=== PATIENT | female | born 1955 | race Caucasian/White ===

== ENCOUNTER 2016-12-17 12:38 | Inpatient (IN) | payer BC ==
[2016-12-17] MEDS ORDERED: SODIUM CHLORIDE 0.9% 1,000 ML IV STA (13:04)
--- NOTE | 2016-12-17 13:11 | ED ---
General Adult HPI - General Chief complaint: Chest Pain Stated complaint: Chest Pain, Light Headed, Blurred Vision Time Seen by Provider: 12/17/16 12:50 Source: patient, RN notes reviewed Mode of arrival: wheelchair Limitations: no limitations - History of Present Illness Initial comments: This is a 61-year-old female presents emergency department stating that everything in her vision when kind of wavy and she became very off balance while at work. Patient states when she got a truck she was very unsteady in her gait and thought she would fall over. Patient states she has some chest tightness but it was a very bad she thinks it may just been anxiety at the time because of all the lightheadedness. Patient states she also has a moderate headache. Patient denies any numbness or weakness that is focal. Patient denies any idea that she was going to pass out. Patient denies any difficulty breathing or shortness of breath per patient denies any diaphoretic episodes. Patient denies any abdominal pain patient denies nausea vomiting diarrhea. - Related Data Home Medications Medication Instructions Recorded Confirmed NIFEdipine [NIFEdipine ER] 60 mg PO DAILY 01/17/15 12/17/16 Aspirin [Adult Low Dose Aspirin EC] 81 mg PO DAILY 12/17/16 12/17/16 Atorvastatin [Lipitor] 20 mg PO HS 12/17/16 12/17/16 Multivitamin/Iron/Folic Acid 1 tab PO DAILY 12/17/16 12/17/16 [Centrum Complete Multivit Tab] Allergies Allergy/AdvReac Type Severity Reaction Status Date / Time No Known Allergies Allergy Verified 12/17/16 14:07 Review of Systems ROS Statement: Those systems with pertinent positive or pertinent negative responses have been documented in the HPI. ROS Other: All systems not noted in ROS Statement are negative. Past Medical History Past Medical History: Hypertension History of Any Multi-Drug Resistant Organisms: None Reported Past Surgical History: Appendectomy, Orthopedic Surgery, Tonsillectomy Additional Past Surgical History / Comment(s): Brain tumor removed in 1996 rt knee and lt ankle Past Anesthesia/Blood Transfusion Reactions: No Reported Reaction Past Psychological History: No Psychological Hx Reported Smoking Status: Never smoker Past Alcohol Use History: Daily Past Drug Use History: None Reported - Past Family History Brother(s) Family Medical History: Cancer Sister(s) Family Medical History: Cancer Mother Family Medical History: Deep Vein Thrombosis (DVT) General Exam - General Exam Comments Initial Comments: GENERAL: Patient is well-developed and well-nourished. Patient is nontoxic and well- hydrated and is in mild distress. ENT: Neck is soft and supple. No significant lymphadenopathy is noted. Oropharynx is clear. Moist mucous membranes. Neck has full range of motion without eliciting any pain. EYES: The sclera were anicteric and conjunctiva were pink and moist. Extraocular movements were intact and pupils were equal round and reactive to light. Eyelids were unremarkable. PULMONARY: Unlabored respirations. Good breath sounds bilaterally. No audible rales rhonchi or wheezing was noted. CARDIOVASCULAR: There is a regular rate and rhythm without any murmurs gallops or rubs. ABDOMEN: Soft and nontender with normal bowel sounds. No palpable organomegaly was noted. There is no palpable pulsatile mass. SKIN: Skin is clear with no lesions or rashes and otherwise unremarkable. NEUROLOGIC: Patient is alert and oriented x3. Cranial nerves II through XII are grossly intact. Motor and sensory are also intact. Normal speech, volume and content. Symmetrical smile. Finger nose cerebellar testing was normal bilaterally MUSCULOSKELETAL: Normal extremities with adequate strength and full range of motion. No lower extremity swelling or edema. No calf tenderness. LYMPHATICS: No significant lymphadenopathy is noted PSYCHIATRIC: Normal psychiatric evaluation. Limitations: no limitations Course Vital Signs 12/17/16 12/17/16 12:51 12:55 Temperature 98.9 F Pulse Rate 72 71 Respiratory 20 18 Rate Blood Pressure 148/82 148/82 O2 Sat by Pulse 98 98 Oximetry Medical Decision Making - Medical Decision Making EKG shows a junctional rhythm at 72 bpm QRS is 90 QT interval 396 QTC is 433. P waves can be seen on the EKG. No ST segment elevation or depression was noted. Patient's CT of the brain was normal patient's x-ray of the chest was normal. I will begin to reevaluate the patient she still had a headache and continues to have slight dizziness but was improved from earlier. Patient was able to ambulate but still felt slightly unsteady. - Lab Data Result diagrams: 12/17/16 13:11 12/17/16 13:11 Lab Results 12/17/16 12/17/16 12/17/16 Range/Units 13:11 13:11 13:11 WBC 6.2 (3.8-10.6) k/uL RBC 5.08 (3.80-5.40) m/uL Hgb 14.7 (11.4-16.0) gm/dL Hct 44.3 (34.0-46.0) % MCV 87.2 (80.0-100.0) fL MCH 28.9 (25.0-35.0) pg MCHC 33.1 (31.0-37.0) g/dL RDW 14.3 (11.5-15.5) % Plt Count 283 (150-450) k/uL Neutrophils % 66 % Lymphocytes % 27 % Monocytes % 4 % Eosinophils % 1 % Basophils % 1 % Neutrophils # 4.0 (1.3-7.7) k/uL Lymphocytes # 1.7 (1.0-4.8) k/uL Monocytes # 0.3 (0-1.0) k/uL Eosinophils # 0.1 (0-0.7) k/uL Basophils # 0.0 (0-0.2) k/uL Sodium 142 (137-145) mmol/L Potassium 4.0 (3.5-5.1) mmol/L Chloride 110 H (98-107) mmol/L Carbon Dioxide 22 (22-30) mmol/L Anion Gap 10 mmol/L BUN 15 (7-17) mg/dL Creatinine 0.70 (0.52-1.04) mg/dL Est GFR (MDRD) Af Amer >60 (>60 ml/min/1.73 sqM) Est GFR (MDRD) Non-Af >60 (>60 ml/min/1.73 sqM) Glucose 98 (74-99) mg/dL Calcium 9.6 (8.4-10.2) mg/dL Magnesium 2.1 (1.6-2.3) mg/dL Total Bilirubin 0.4 (0.2-1.3) mg/dL AST 29 (14-36) U/L ALT 35 (9-52) U/L Alkaline Phosphatase 104 (38-126) U/L Total Creatine Kinase 164 H (30-135) U/L CK-MB (CK-2) 1.8 (0.0-2.4) ng/mL CK-MB (CK-2) Rel Index 1.1 Troponin I <0.012 (0.000-0.034) ng/mL Total Protein 6.7 (6.3-8.2) g/dL Albumin 4.3 (3.5-5.0) g/dL Disposition Clinical Impression: Chest pain, Headache, Visual disturbance Disposition: ADMITTED IP TO THIS HOSP Referrals: Cordelia Partida DO [Primary Care Provider] - 1-2 days Time of Disposition: 16:19
[2016-12-17 13:22] LABS: Basophils % (A) 1 %; CH 30.1; CHCM 34.7; Eosinophils # (A) 0.1 k/uL (0-0.7); Eosinophils % (A) 1 %; HCT 44.3 % (34.0-46.0); HDW 2.61; HGB 14.7 gm/dL (11.4-16.0); Luc # (Auto) 0.09; Luc % (Auto) 2; Lymphocytes # (A) 1.7 k/uL (1.0-4.8); Lymphocytes % (A) 27 %; MCH 28.9 pg (25.0-35.0); MCHC 33.1 g/dL (31.0-37.0); MCV 87.2 fL (80.0-100.0); Mean Platelet Volume 8.6; Monocytes # (A) 0.3 k/uL (0-1.0); Monocytes % (A) 4 %; Neutrophils % (A) 66 %; RBC 5.08 m/uL (3.80-5.40); RDW 14.3 % (11.5-15.5); WBC 6.2 k/uL (3.8-10.6); WBC (Perox) 5.94
[2016-12-17 13:37] LABS: ALT 35 U/L (9-52); AST 29 U/L (14-36); Alkaline Phosphatase 104 U/L (38-126); Anion Gap 10 mmol/L; Blood Urea Nitrogen 15 mg/dL (7-17); Calcium 9.6 mg/dL (8.4-10.2); Carbon Dioxide 22 mmol/L (22-30); Chloride 110 mmol/L (98-107); Glucose 98 mg/dL (74-99); Magnesium 2.1 mg/dL (1.6-2.3); Non-African American GFR(MDRD) >60 (>60 ml/min/1.73 sqM); Sodium 142 mmol/L (137-145); Total Bilirubin 0.4 mg/dL (0.2-1.3); Total Protein 6.7 g/dL (6.3-8.2)
[2016-12-17 13:48] LABS: Creatine Kinase 164 U/L (30-135)
--- NOTE | 2016-12-17 13:56 | XR ---
EXAMINATION TYPE: XR chest 2V DATE OF EXAM: 12/17/2016 COMPARISON: Prior chest x-ray 08/14/2011 HISTORY: Chest pain TECHNIQUE: Frontal and lateral views of the chest are obtained. FINDINGS: There is no pleural effusion, or pneumothorax seen. Bandlike focus of increased density in the left lower lobe may represent subsegmental atelectasis or scar. The cardiac silhouette size is s table, borderline enlarged although the patient is rotated. There are overlying cardiac leads. The o sseous structures are intact. IMPRESSION: Findings are similar to prior exam. Subsegmental atelectasis is suspected versus scarrin g in the left lower lobe. Borderline enlarged cardiac size although the patient is rotated.
[2016-12-17 14:00] LABS: Creatine Kinase MB 1.8 ng/mL (0.0-2.4); Troponin I <0.012 ng/mL (0.000-0.034)
--- NOTE | 2016-12-17 15:13 | CT ---
EXAMINATION TYPE: CT brain wo con DATE OF EXAM: 12/17/2016 COMPARISON: NONE HISTORY: Visual disturbance today. History of a brain tumor per patient CT DLP: 978.2 mGycm Automated exposure control for dose reduction was used. Helical acquisition through the brain. FINDINGS: Prior surgery noted to the left parietal calvarium. There is no hemorrhage or hydrocephalus. Orbits s how symmetric appearance. Brain density is maintained. IMPRESSION: NO ACUTE ABNORMALITY EVIDENT ON THIS NONCONTRAST EXAM, FOLLOW-UP INDICATED
[2016-12-17] MEDS ORDERED: SODIUM CHLORIDE 0.9% 1,000 ML IV ONE (16:21)
[2016-12-17] MEDS ORDERED: MORPHINE SULFATE 2 MG/ML SYRINGE IVP ONE (16:27)
[2016-12-17] MEDS ORDERED: ONDANSETRON 4 MG/2 ML VIAL IVP PRN (17:13)
[2016-12-17] MEDS ORDERED: MELATONIN 3 MG TABLET PO PRN (17:13)
[2016-12-17] MEDS ORDERED: NALOXONE 0.4 MG/ML 1 ML VIAL IV PRN (17:13)
--- NOTE | 2016-12-17 17:54 | P.HPIM ---
History of Present Illness H&P Date: 12/17/16 Chief Complaint: Headache and visual changes This is a very pleasant 61 years old female presented to ER with complaints of visual changes, headache and lightheadedness. She works for a [employer], was driving today when all of a sudden she started having flickering light in both eyes. Patient describes it as if it was a sunlight hitting the water. it was associated with lightheadedness and left sided headache. Symptoms lasted for about 20-30 minutes. Headache was dull, located on the left side of the head and in the middle, time from time pain was sharp. Headache was 7 out of 10 in intensity and now subsided to 2 out of 10 . She also experienced photophobia and phonophobia, heaviness in the middle of chest that lasted for about 1-2 hours. Chest pain was non-radiationg, no nausea, dyspnea or diaphoresis. While intubated hospital she had an episode of her right arm shaking uncontrollably. It only lasted a few minutes and resolved. No prior history of migraine or seizures. 20 years ago patient had a large meningioma on the left side that was resected. Review of Systems Constitutional: Patient reports no fever, no chills, no weight changes, no change in appetite Eyes: Patient reports no double vision, c/o headache and flickering lights in both eyes ENT: Patient reports no rhinorrhea, no post nasal drip, no sore throat Cardiovascular: Patient reports no edema, no palpitations, no syncope, no orthopnea, no paroxysmal nocturnal dyspnea. c/o chest pain Respiratory: Patient reports no dyspnea, no cough, no wheeze Gastrointestinal: Patient reports no nausea, no vomiting, no constipation, no diarrhea Genitourinary: Patient reports no dysuria, no urinary frequency, no hematuria. Musculoskeletal: Patient reports no unusual joint pain, no joint swelling or weakness. Patient reports no muscular pain. Psychiatric: Patient reports no changes in mood, no sleeping problems. Patient reports no changes in memory. Endocrine: Patient reports no thirst, no polyuria, no cold intolerance, no heat intolerance. Neurological: Patient c/o headache, right arm shaking, dizziness Heme/Lymphatic: Patient reports no easy bruising, no bleeding tendency, no lymphadenopathy. Allergic/ Immunologic: Patient reports no recent allergic reactions or immunologic history. Skin: Patient reports no rashes or unusual lesions. Past Medical History Past Medical History: Hyperlipidemia, Hypertension Additional Past Medical History / Comment(s): meningioma History of Any Multi-Drug Resistant Organisms: None Reported Past Surgical History: Appendectomy, Orthopedic Surgery, Tonsillectomy Additional Past Surgical History / Comment(s): meningioma resection 1996, rt knee and lt ankle surgeries Past Anesthesia/Blood Transfusion Reactions: No Reported Reaction Past Psychological History: No Psychological Hx Reported Smoking Status: Never smoker Past Alcohol Use History: Daily Past Drug Use History: None Reported - Past Family History Brother(s) Family Medical History: Cancer Additional Family Medical History / Comment(s): Brother had non-Hodgkins lymphoma Sister(s) Family Medical History: Cancer Additional Family Medical History / Comment(s): sister colorectal cancer Mother Family Medical History: Congestive Heart Failure (CHF), COPD, Deep Vein Thrombosis (DVT) Father Family Medical History: Hypertension Additional Family Medical History / Comment(s): Father-Parkinson disease Medications and Allergies Home Medications Medication Instructions Recorded Confirmed Type NIFEdipine [NIFEdipine ER] 60 mg PO DAILY 01/17/15 12/17/16 History Aspirin [Adult Low Dose Aspirin EC] 81 mg PO DAILY 12/17/16 12/17/16 History Atorvastatin [Lipitor] 20 mg PO HS 12/17/16 12/17/16 History Multivitamin/Iron/Folic Acid 1 tab PO DAILY 12/17/16 12/17/16 History [Centrum Complete Multivit Tab] Allergies Allergy/AdvReac Type Severity Reaction Status Date / Time No Known Allergies Allergy Verified 12/17/16 14:07 Physical Exam Vitals: Vital Signs Temp Pulse Resp BP Pulse Ox 12/17/16 16:53 70 18 158/93 96 12/17/16 16:00 70 18 170/90 96 12/17/16 15:00 70 18 158/86 96 12/17/16 14:00 66 18 145/82 98 12/17/16 12:55 71 18 148/82 98 12/17/16 12:51 98.9 F 72 20 148/82 98 Intake and Output 12/17/16 12/17/16 12/17/16 06:59 14:59 22:59 Other: Weight 71.214 kg Patient Weight 12/18/16 06:59 Weight 71.214 kg Constitutional: No acute distress, conversant, pleasant Eyes: Anicteric sclerae, moist conjunctiva PERRL ENMT: NC/AT Neck: Supple, FROM, no masses, or JVD No thyromegaly Lungs: Clear to auscultation Normal respiratory effort, no accessory muscle use Cardiovascular: Heart regular in rate and rhythm, No murmurs, gallops, or rubs No peripheral edema Abdominal: Soft Nontender, no guarding, rebound or rigidity Abdomen moving with respiration Normoactive bowel sounds No hepatomegaly, No splenomegaly No palpable mass Skin: Normal temperature, tone, texture, turgor No induration No subcutaneous nodules No rash, lesions No ulcers Extremities: No digital cyanosis No clubbing Pedal pulses intact and symmetrical No calf tenderness Psychiatric: Alert and oriented to person, place and time Appropriate affect Intact judgement Neuro: Muscles Strength 5/5 in all 4 extremities Sensation to light touch grossly present throughout Cranial nerves II-XII grossly intact No focal sensory deficits Results CBC & Chem 7: 12/17/16 13:11 12/17/16 13:11 Labs: Abnormal Lab Results - Last 24 Hours (Table) 12/17/16 12/17/16 Range/Units 13:11 13:11 Chloride 110 H (98-107) mmol/L Total Creatine Kinase 164 H (30-135) U/L Chest x-ray: report reviewed CT Scan - head: report reviewed Assessment and Plan (1) Headache Narrative/Plan: Headache with visual disturbances and dizziness, likely complex migraine headache. Neuro checks every 4 hours, consult neurology. Will order Toradol for a headache, MRI of brain. Status: Acute (2) Chest pain Narrative/Plan: First set of troponins and EKG are normal. Cycle troponins, 2DECHO, if normal will defer a stress test to outpatient w/u. Status: Acute (3) Hypertension Narrative/Plan: Resume Nifedipine and monitor BP Status: Acute (4) Hyperlipidemia Narrative/Plan: Continue home medications, lipid panel in am. Status: Acute (5) DVT prophylaxis Narrative/Plan: Heparin SQ. Status: Acute
[2016-12-17 18:19] VITALS: BMI 25.9
[2016-12-17] MEDS: KETOROLAC 30 MG/ML 1 ML VIAL IVP SCH ×2 (18:27→23:56)
[2016-12-17] MEDS: HEPARIN SODIUM,PORCINE 5,000 UNIT/ML 1 ML VIAL SQ SCH (20:29)
[2016-12-17] MEDS: ATORVASTATIN 20 MG TAB PO SCH (20:29)
[2016-12-17] MEDS: FAMOTIDINE 20 MG TAB PO SCH (20:29)
[2016-12-18 02:20] LABS: Basophils % (A) 1 %; CH 29.8; CHCM 33.9; Eosinophils # (A) 0.1 k/uL (0-0.7); Eosinophils % (A) 2 %; HCT 40.6 % (34.0-46.0); HGB 13.2 gm/dL (11.4-16.0); Luc # (Auto) 0.07; Luc % (Auto) 2; Lymphocytes # (A) 2.2 k/uL (1.0-4.8); Lymphocytes % (A) 49 %; MCH 28.9 pg (25.0-35.0); MCHC 32.6 g/dL (31.0-37.0); MCV 88.4 fL (80.0-100.0); Mean Platelet Volume 8.6; Monocytes # (A) 0.2 k/uL (0-1.0); Monocytes % (A) 3 %; Neutrophils # (A) 1.9 k/uL (1.3-7.7); Neutrophils % (A) 43 %; RBC 4.59 m/uL (3.80-5.40); RDW 14.2 % (11.5-15.5); WBC 4.5 k/uL (3.8-10.6); WBC (Perox) 4.71
[2016-12-18 02:52] LABS: Anion Gap 6 mmol/L; Blood Urea Nitrogen 13 mg/dL (7-17); Carbon Dioxide 23 mmol/L (22-30); Chloride 109 mmol/L (98-107); Cholesterol 196 mg/dL (<200); Glucose 87 mg/dL (74-99); HDL Cholesterol 59 mg/dL (40-60); Non-African American GFR(MDRD) >60 (>60 ml/min/1.73 sqM); Potassium 3.6 mmol/L (3.5-5.1); Sodium 138 mmol/L (137-145)
[2016-12-18 03:09] LABS: Erythrocyte Sedimentation Rate 6 mm/hr (0-20)
[2016-12-18] MEDS: KETOROLAC 30 MG/ML 1 ML VIAL IVP SCH ×5 (06:29→23:18)
--- NOTE | 2016-12-18 09:00 | MR ---
EXAMINATION TYPE: MR brain wo con DATE OF EXAM: 12/18/2016 COMPARISON: CT brain 12/17/2016 HISTORY: Headache, Prior tumor removal in 1996 CONTRAST: Performed utilizing 0 mL intravenous Gadavist gadolinium contrast. TECHNIQUE: Multiplanar, multiecho imaging on a 3.0 Yuly magnet is performed through the brain. Stud y is performed within 24 hours of arrival to the hospital. Craniotomy is along the left posterior parietal region. The craniovertebral junction is normal. The pituitary is normal. Diffusion-weighted imaging is performed. Small amount of hyperintensities along the posterior medial right occipital vertex along the cortex appears tiny cortical ischemic change may be present at this level. Series 305 image 208. There are scattered punctate areas of hyperintensity on T2 and Inversion Recovery weighted sequences which are non-specific but can be related to microvascular ischemic changes. . Diffusion-weighted giovanny ging abnormality as a normal appearance on additional images. Ventricles and sulci are appropriate for the patient age. No suspicious recurrent masses are identified. White matter changes are in the posterior left occipit al region white matter could be residual from patient's surgery and prior changes. IMPRESSIONS: 1. Some minimal acute ischemic change may be along the right occipital vertex cortex. Correlate with symptoms. 2. Chronic white matter ischemic changes present. 3. Postsurgical changes left posterior parietal vertex. No suspicious changes for recurrence at this level.
[2016-12-18] MEDS: HEPARIN SODIUM,PORCINE 5,000 UNIT/ML 1 ML VIAL SQ SCH ×2 (09:49→23:17)
[2016-12-18] MEDS: ASPIRIN 81 MG CHEW PO SCH (09:49)
[2016-12-18] MEDS: MULTIVITAMINS, THERA 1 EACH TAB PO SCH (09:49)
[2016-12-18] MEDS: FAMOTIDINE 20 MG TAB PO SCH ×2 (09:49→23:18)
[2016-12-18] MEDS ORDERED: ACETAMINOPHEN TAB 325 MG TAB PO PRN (10:27)
--- NOTE | 2016-12-18 11:08 | ECHOF ---
Referral Reason:chest pain MEASUREMENTS -------- HEIGHT: 165.1 cm WEIGHT: 70.8 kg BP: 127/74 IVSd: 1.0 cm (0.6 - 1.1) LVIDd: 3.5 cm (3.9 - 5.3) LVPWd: 1.1 cm (0.6 - 1.1) IVSs: 1.7 cm LVIDs: 2.2 cm LVPWs: 1.7 cm Ao Diam: 3.2 cm (2.0 - 3.7) AV Cusp: 1.8 cm (1.5 - 2.6) LA Diam: 3.3 cm (2.7 - 3.8) MV EXCURSION: 11.844 mm (> 18.000) MV EF SLOPE: 55 mm/s (70 - 150) EPSS: 0.4 cm MV E Corwin: 0.83 m/s MV DecT: 181 ms MV A Corwin: 1.06 m/s MV E/A Ratio: 0.78 RAP: 5.00 mmHg RVSP: 18.21 mmHg FINDINGS -------- Sinus rhythm. This was a technically good study. Left ventricular wall thickness is normal. Overall left ventricular systolic function is normal with, an EF between 55 - 60 %. The right ventricle is normal in size and function. The left atrium is normal in size. The right atrium is normal in size. The aortic valve is trileaflet, and appears structurally normal. No aortic stenosis or regurgitation. Mild mitral regurgitation is present. There is mild mitral valve prolapse. Mild tricuspid regurgitation present. The right ventricular systolic pressure, as measured by Doppler, is 18.21mmHg. Pulmonic valve appears structurally normal. The aortic root size is normal. The pericardium is normal. CONCLUSIONS -------- 1. Sinus rhythm. 2. There is mild mitral valve prolapse. 3. Mild tricuspid regurgitation present. 4. The right ventricular systolic pressure, as measured by Doppler, is 18.21mmHg. 5. Pulmonic valve appears structurally normal. 6. The aortic root size is normal. 7. The pericardium is normal. 8. This was a technically good study. 9. Left ventricular wall thickness is normal. 10. Overall left ventricular systolic function is normal with, an EF between 55 - 60 %. 11. The right ventricle is normal in size and function. 12. The left atrium is normal in size. 13. The right atrium is normal in size. 14. The aortic valve is trileaflet, and appears structurally normal. No aortic stenosis or regurgitation. 15. Mild mitral regurgitation is present. LOOM FIXER SUPERVISOR: Nancy Joiner RDCS
--- NOTE | 2016-12-18 15:15 | P.PN ---
Subjective Principal diagnosis: Headache and visual changes This is a very pleasant 61 years old female presented to ER with complaints of visual changes, headache and lightheadedness. She works for a [employer], was driving today when all of a sudden she started having flickering light in both eyes. Patient describes it as if it was a sunlight hitting the water. it was associated with lightheadedness and left sided headache. Symptoms lasted for about 20-30 minutes. Headache was dull, located on the left side of the head and in the middle, time from time pain was sharp. Headache was 7 out of 10 in intensity and now subsided to 2 out of 10 . She also experienced photophobia and phonophobia, heaviness in the middle of chest that lasted for about 1-2 hours. Chest pain was non-radiationg, no nausea, dyspnea or diaphoresis. While intubated hospital she had an episode of her right arm shaking uncontrollably. It only lasted a few minutes and resolved. No prior history of migraine or seizures. 20 years ago patient had a large meningioma on the left side that was resected Patient has been seen and examined. Her headache site is significantly no visual changes, no tingling or numbness of extremities. Gait is stable. Denies chest pain or shortness of breath, no palpitations. Objective - Vital Signs Vital signs: Vital Signs Temp 97.9 F 12/18/16 11:38 Pulse 67 12/18/16 12:00 Resp 16 12/18/16 12:00 BP 145/91 12/18/16 11:38 Pulse Ox 96 12/18/16 11:38 Intake & Output 12/17/16 12/18/16 12/18/16 18:59 06:59 18:59 Intake Total 240 556 Balance 240 556 Weight 70.9 kg Intake: Oral 240 556 Other: Voiding Method Toilet Toilet Toilet # Voids 2 2 - Exam Constitutional: No acute distress, conversant, pleasant Eyes: Anicteric sclerae, moist conjunctiva ENMT: NC/AT Oropharynx clear, no erythema, exudates Neck: Supple, FROM, no masses, or JVD No thyromegaly Lungs: Clear to auscultation Normal respiratory effort, no accessory muscle use Cardiovascular: Heart regular in rate and rhythm, No murmurs, gallops, or rubs No peripheral edema Abdominal: Soft Nontender, no guarding, rebound or rigidity Normoactive bowel sounds No hepatomegaly, No splenomegaly No palpable mass No subcutaneous nodules No rash, lesions No ulcers Extremities: No digital cyanosis No clubbing Pedal pulses intact and symmetrical No calf tenderness Psychiatric: Alert and oriented to person, place and time Appropriate affect Intact judgement Neuro: Muscles Strength 5/5 in all 4 extremities Sensation to light touch grossly present throughout Cranial nerves II-XII grossly intact No focal sensory deficits All - Labs CBC & Chem 7: 12/18/16 02:06 12/18/16 02:06 Labs: Abnormal Lab Results - Last 24 Hours (Table) 12/18/16 Range/Units 02:06 Chloride 109 H (98-107) mmol/L LDL Cholesterol, Calc 121 H (0-99) mg/dL Assessment and Plan (1) Headache Narrative/Plan: Headache with visual disturbances and dizziness, possibly secondary to complex migraine versus acute ischemic event. MRI was done and showed very mild acute ischemia. EEG and neurology consult pending. Status: Acute (2) Chest pain Narrative/Plan: Echocardiogram is normal, EKG and troponins negative. Patient can have stress test done as an outpatient. Status: Acute (3) Hypertension Narrative/Plan: Continue Nifedipine. Status: Acute (4) Hyperlipidemia Narrative/Plan: Continue home medications, lipid panel in am. Status: Acute (5) DVT prophylaxis Narrative/Plan: Heparin SQ. Status: Acute
[2016-12-18] MEDS: ATORVASTATIN 20 MG TAB PO SCH (23:18)
--- NOTE | 2016-12-19 12:15 | P.CRDCN ---
History of Present Illness Consult date: 12/19/16 History of present illness: This is a 61-year-old female with history of hypertension and hyperlipidemia who was admitted to the hospital with visual changes, headache and lightheadedness. An MRI scan was suggestive of possible mild ischemia. A cardiology consult is requested to rule out any Cardec source of emboli. Patient has had some his symptoms of chest tightness. Patient had similar episode a few years ago and at the time. Patient had chest tightness. Patient had stress test and echo further cardiac evaluation which was normal. A sinus complaining of occasional palpitations. I recommend that we'll proceed with TAE to rule out any Cardec source of emboli. Patient also meanwhile consider for event monitor. The TAE could be arranged for next week. Further examination depend upon the findings on the tests Review of Systems As per the chart Past Medical History Past Medical History: Hyperlipidemia, Hypertension Additional Past Medical History / Comment(s): meningioma History of Any Multi-Drug Resistant Organisms: None Reported Past Surgical History: Appendectomy, Orthopedic Surgery, Tonsillectomy Additional Past Surgical History / Comment(s): meningioma resection 1996, rt knee and lt ankle surgeries Past Anesthesia/Blood Transfusion Reactions: No Reported Reaction Additional Past Anesthesia/Blood Transfusion Reaction / Comment(s): pt states she had a hard time waking up from previous anesthesia and pt states they couldn 't get her BP back up. Past Psychological History: No Psychological Hx Reported Smoking Status: Never smoker Past Alcohol Use History: Daily Past Drug Use History: None Reported - Past Family History Father Family Medical History: Hypertension Additional Family Medical History / Comment(s): Father-Parkinson disease Brother(s) Family Medical History: Cancer Additional Family Medical History / Comment(s): Brother had non-Hodgkins lymphoma Sister(s) Family Medical History: Cancer Additional Family Medical History / Comment(s): sister colorectal cancer Mother Family Medical History: Congestive Heart Failure (CHF), COPD, Deep Vein Thrombosis (DVT) Medications and Allergies Home Medications Medication Instructions Recorded Confirmed Type NIFEdipine [NIFEdipine ER] 60 mg PO DAILY 01/17/15 12/17/16 History Aspirin [Adult Low Dose Aspirin EC] 81 mg PO DAILY 12/17/16 12/17/16 History Atorvastatin [Lipitor] 20 mg PO HS 12/17/16 12/17/16 History Multivitamin/Iron/Folic Acid 1 tab PO DAILY 12/17/16 12/17/16 History [Centrum Complete Multivit Tab] Allergies Allergy/AdvReac Type Severity Reaction Status Date / Time No Known Allergies Allergy Verified 12/17/16 14:07 Physical Exam Vitals: Vital Signs Temp Pulse Pulse Resp BP Pulse Ox 12/19/16 11:55 98.1 F 64 16 141/73 97 12/19/16 08:00 16 12/19/16 07:30 98.1 F 55 L 16 159/84 100 12/19/16 04:00 98.3 F 53 L 56 L 18 129/79 99 12/19/16 00:00 98.1 F 50 L 62 18 172/92 98 12/18/16 20:00 18 12/18/16 19:33 98.5 F 61 18 148/71 97 12/18/16 16:00 65 16 12/18/16 15:53 98.2 F 65 16 153/76 95 Intake and Output 12/18/16 12/19/16 12/19/16 22:59 06:59 14:59 Intake Total 236 236 Balance 236 236 Intake: Oral 236 236 Other: Voiding Method Toilet Toilet Toilet # Voids 3 GENERAL EXAM: Patient is alert and oriented and doesn't appear to be in any acute distress HEENT: Normocephalic. Normal reaction of pupils, equal size, normal range of extraocular motion. No erythema or exudates in the throat. NECK: No masses, no nuchal rigidity. CHEST: No chest wall deformity. LUNGS: Equal air entry with no crackles or wheeze. HEART: S1 and S2 normal with no audible mumurs or gallops. Regular rhythm, femorals equal on both sides.. ABDOMEN: No hepatosplenomegaly, normal bowel sounds, no guarding or rigidity. SKIN: No rashes CENTRAL NERVOUS SYSTEM: No focal deficits. Per neurology EXTREMITIES: No cyanosis, clubbing or edema. Results 12/18/16 02:06 12/18/16 02:06 Current Medications Generic Name Dose Route Start Last Admin Trade Name Freq PRN Reason Stop Dose Admin Acetaminophen 650 mg 12/18/16 10:27 Tylenol Tab PO Q6HR PRN Fever and/ or Pain Aspirin 81 mg 12/18/16 09:00 12/18/16 09:49 Aspirin PO 81 mg DAILY GAYE Administration Atorvastatin Calcium 20 mg 08/23/17 21:00 12/18/16 23:18 Lipitor PO 20 mg HS GAYE Administration Famotidine 20 mg 12/17/16 21:00 12/18/16 23:18 Pepcid PO 20 mg BID GAYE Administration Heparin Sodium (Porcine) 5,000 unit 12/17/16 21:00 12/18/16 23:17 Heparin SQ 5,000 unit Q12HR GAYE Administration Ketorolac Tromethamine 15 mg 12/17/16 18:00 12/18/16 23:18 Toradol IVP 12/21/16 17:20 15 mg Q6HR GAYE Administration Melatonin 3 mg 12/17/16 17:13 Melatonin PO HS PRN Insomnia Multivitamins 1 each 12/18/16 09:00 12/18/16 09:49 Theragran PO 1 each DAILY GAYE Administration Naloxone HCl 0.2 mg 12/17/16 17:13 Narcan IV Q2M PRN Opioid Reversal Nifedipine 60 mg 12/18/16 09:00 12/18/16 09:49 Procardia Xl PO 60 mg DAILY GAYE Administration Ondansetron HCl 4 mg 12/17/16 17:13 Zofran IVP Q8HR PRN Nausea And Vomiting Intake and Output 12/18/16 12/19/16 12/19/16 22:59 06:59 14:59 Intake Total 236 236 Balance 236 236 Intake: Oral 236 236 Other: Voiding Method Toilet Toilet Toilet # Voids 3 12/18/16 02:06 12/18/16 02:06 Assessment and Plan (1) TIA (transient ischemic attack) Status: Acute (2) Hyperlipidemia Status: Acute (3) Hypertension Status: Acute (4) Visual disturbance Status: Acute Plan: Patient's symptoms are size to of TIA. I would recommend a event monitor and TAE examination. He patient could be discharged home with event monitor and a TAE can be arranged for next week. Patient will also have an outpatient stress test. If necessary a loop recorder insertion could be considered if given monitor doesn't show any significant arrhythmias and if TAE is negative.
[2016-12-19] MEDS: KETOROLAC 30 MG/ML 1 ML VIAL IVP SCH ×3 (13:05→20:17)
[2016-12-19] MEDS: MULTIVITAMINS, THERA 1 EACH TAB PO SCH (13:06)
[2016-12-19] MEDS: FAMOTIDINE 20 MG TAB PO SCH ×2 (13:06→21:45)
[2016-12-19] MEDS: ASPIRIN 81 MG CHEW PO SCH (13:06)
[2016-12-19] MEDS: HEPARIN SODIUM,PORCINE 5,000 UNIT/ML 1 ML VIAL SQ SCH ×2 (13:07→21:45)
--- NOTE | 2016-12-19 15:36 | P.PN ---
Subjective Principal diagnosis: Patient seen and examined in follow-up for acute stroke/TIA 61-year-old female with past medical history of hypertension and dyslipidemia. She presented to the hospital due to sudden onset of vision disturbance and dizziness and unsteady gait. She'll reported that she was driving when she experienced symptoms and was progressively getting worse to the point that she had to tie puller and seek help. Upon further evaluation in the ED MRI of the brain was done which has raised suspicion for an ischemic event for which further stroke pathway workup was performed 2-D echo of the heart was unremarkable cardiology evaluated the patient for TAE to rule out any PFO and to evaluate for long-term cardiac monitoring to rule out any subtle arrhythmias. Cardiology evaluated the patient recommended performing TAE next week, and recommended to perform an event monitor to be reviewed as now patient. Otherwise no ischemic workup was recommended at this point patient denies any chest pain or any trouble breathing. Neurology evaluated the patient recommended ophthalmology evaluation due to patient complaining of right visual field defect. 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 PT and OT are consultative for further evaluation and stroke patient. Patient feels comfortable today reports that there is some haziness in her right visual field but otherwise she reports that she is walking fine now and reports that dizziness has resolved. Patient is eager to go home Objective - Vital Signs Vital signs: Vital Signs Temp 98.1 F 12/19/16 11:55 Pulse 64 12/19/16 11:55 Resp 16 12/19/16 12:00 BP 141/73 12/19/16 11:55 Pulse Ox 97 12/19/16 11:55 Intake & Output 12/18/16 12/19/16 12/19/16 18:59 06:59 18:59 Intake Total 792 236 Balance 792 236 Intake: Oral 792 236 Other: Voiding Method Toilet Toilet Toilet # Voids 3 Constitutional: Not in acute distress, pleasant, conversant Eyes: Pupils equal round reactive to light Lungs: Clear to auscultation bilaterally, clear to percussion, normal respiratory effort no use of accessory muscles Cardiovascular: Regular rate and rhythm, no murmurs, no gallops, no rubs, no peripheral leg edema Extremities: No digital cyanosis, ischemic, or clubbing, peripheral pulses palpable and equal over bilateral radial arteries and dorsalis pedis artery, no calf muscle tenderness Psych: Alert, oriented to place, person and time Neuro: Cranial nerves II-XII grossly intact (visual field exam is grossly intact compared to the examiner's visual field), no focal sensory deficits to touch, strength is grossly intact throughout, finger-nose exam is unremarkable - Labs CBC & Chem 7: 12/18/16 02:06 12/18/16 02:06 Assessment and Plan (1) Acute ischemic stroke Narrative/Plan: MRI showed area of small ischemic changes in the right occipital region along with chronic white matter ischemic changes atorvastatin 40 mg qhs Aspirin 81 mg neurology consulted check TSH, Vit B12 2 D echo unremarkable plans for TAE next week PT/OT evaluation patient reports resolution of unsteady gait and dizziness, however, still have persistent right visual field defect per her report Status: Acute (2) Visual disturbance Narrative/Plan: This could be related to the MRI findings of occipital small ischemic changes Ophthalmology could not see the patient while admitted consider OP evaluation by ophthalmology for objective visual field evaluation patient should be avoiding driving and running heavy machinary until official visual field exam is performed Status: Acute (3) Hyperlipidemia Narrative/Plan: continue with atorvastatin 40 mg QHS Status: Acute (4) Hypertension Narrative/Plan: blood pressure controlled continue with nifedipine Status: Acute (5) DVT prophylaxis Narrative/Plan: heparin sc Status: Acute Plan: await neurology input regarding further workup vs discharge home PT / OT evaluation OP workup with cardiology , TAE, and cardiac event monitor OP ophthalmology visual field evaluation
--- NOTE | 2016-12-19 18:25 | P.CON ---
Consult Note - . 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 This vision problem did not affect her ability to drive immediately but as the time went by she became aware of a dark area to right inferior-temporal area. This seemed very similar in shape and size and was as if surrounded by sparkling. After a while she became less comfortable with the vision changes and felt unsteady. She pulled the truck aside and called her work and cancelled the balance of her route. She presented to the emergency room feeling poorly with poor vision. During this timed she also had a headache which was fairly intense about 8 to 9 out of 10. The headache pain lasted into the evening, but the vision changes lasted only about 45 minutes or so. Other symptoms not related to me were noted in the history taken elsewhere. During today's examination she states that her vision seems back to normal. There is no significant ophthalmic history, except for routine eye exams about every year and the glasses are updated at that time. PE: Va w/o correction 20/20 OU with near card EOM full D&V orthophoric Confrontational Connors: normal OU Pupils 5 to 3 both direct and consensual without any APD noted. 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 The extent of which is not noted during this examination, as this appeared normal this afternoon, but can be better determined with formal field testing. The source of the problem has yet to be determined. P: Recommend formal testing in the office when released. Recommend restriction of any driving while on a [place] license, but may consider driving with a reliable passenger until the extent of the residual defect may be determined.
[2016-12-19] MEDS ORDERED: ATORVASTATIN 40 MG TAB PO SCH (21:00)
[2016-12-20] MEDS: KETOROLAC 30 MG/ML 1 ML VIAL IVP SCH ×2 (04:24→08:34)
[2016-12-20 08:04] VITALS: BP 121/70; PULSE 62; RESP 16; TEMP 97.8
[2016-12-20] MEDS: ASPIRIN 81 MG CHEW PO SCH (08:33)
[2016-12-20] MEDS: MULTIVITAMINS, THERA 1 EACH TAB PO SCH (08:33)
[2016-12-20] MEDS: FAMOTIDINE 20 MG TAB PO SCH (08:33)
[2016-12-20] MEDS: HEPARIN SODIUM,PORCINE 5,000 UNIT/ML 1 ML VIAL SQ SCH (08:35)
--- NOTE | 2016-12-20 09:16 | P.PN ---
Subjective This patient is a 61 year old female who is being evaluated for acute right occipital stroke. Patient was admitted to Hospital with symptoms of acute visual changes while driving her vehicle for work. 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 She was feeling dizzy and lightheaded during this episode. She was advised to come to the emergency room for further evaluation. She subsequently was admitted to Hospital and underwent a MRI of the brain which revealed evidence of a acute right occipital infarct. There was also questionable areas in the left parieto-occipital region suggesting possible cardioembolic stroke syndrome. Cardiology was consulted for possible TAE procedure for the patient. Ophthalmology was also consulted. Cardiology is recommending a event monitor to be placed for the patient and to have a TAE procedure scheduled early next week as an outpatient. The patient was started on aspirin for secondary stroke prevention. She was seen by ophthalmology who are recommending further testing in the outpatient clinic with visual field assessment. The patient continues to do fairly well but still continues to have vision changes. We feel the patient should be fine for discharge home tomorrow morning and should follow-up in the outpatient neurology clinic in 3-4 weeks. We will await further testing from cardiology and ophthalmology and we' ll review this with her at follow-up. Her overall prognosis at this time remains guarded. Objective - Vital Signs Vital signs: Vital Signs Temp 98 F 12/19/16 19:29 Pulse 62 12/19/16 20:00 Resp 18 12/19/16 20:00 BP 131/81 12/19/16 19:29 Pulse Ox 97 12/19/16 19:29 Intake & Output 12/19/16 12/19/16 12/20/16 06:59 18:59 06:59 Intake Total 236 Balance 236 Intake: Oral 236 Other: Voiding Method Toilet Toilet Toilet # Voids 3 - Exam Physical Examination: PHYSICAL EXAMINATION: Patient is resting comfortably in bed. VITAL SIGNS: Blood pressure is [131/81]. Heart rate is [69]. Respiration is [18] . Temperature is [98.0]. HEENT: Head is atraumatic, neck is supple, there were no carotid bruits. CHEST: Lungs are clear to auscultation and percussion. CARDIAC: S1, S2 normal rate and rhythm. There is no murmur. ABDOMEN: Soft and nontender. Bowel sounds are present. EXTREMITIES: There is no pedal edema. Peripheral pulses are present. Neurological examination: Patient's neurological examination is unchanged from yesterday. - Labs CBC & Chem 7: 12/18/16 02:06 12/18/16 02:06 Assessment and Plan (1) Occipital stroke Status: Acute Code(s): I63.9 - CEREBRAL INFARCTION, UNSPECIFIED (2) Hyperlipidemia Status: Acute Code(s): E78.5 - HYPERLIPIDEMIA, UNSPECIFIED Plan: This patient is a 61-year-old female who was admitted to Hospital with symptoms of visual changes and mild dizziness. She was admitted to hospital and underwent a MRI of the brain which reveals evidence of any acute right occipital stroke. She has been recommended a TAE procedure by cardiology. We' re waiting scheduling of this test for her to be done on Thursday. She was seen by ophthalmology and she will need visual field testing to be done in the outpatient ophthalmology clinic. Neurologically her exam remains very stable today. We would recommend she start on one aspirin daily for secondary stroke prevention. She should follow-up in the outpatient neurology clinic in 2-3 weeks for further follow-up and to review her scheduled testing that is to be done. Her overall prognosis at this time remains guarded. She was recommended by ophthalmology not to be driving at this time until her workup has been completed. We would agree with this. We will continue close neurological follow-up with this patient during this admission. Her overall prognosis at this time remains guarded.
--- NOTE | 2016-12-20 09:55 | P.DS ---
Providers Date of admission: 12/18/16 15:34 Expected date of discharge: 12/20/16 Attending physician: Britney Brenner DO Consults: 12/17/16 16:21 Consult Physician Urgent Consulting Provider: Gardenia Caicedo Consult Reason/Comments: headache, visual disturbance Do you want consulting provider notified?: Yes 12/19/16 08:00 Consult Physician Urgent Consulting Provider: Alber Oliveira Consult Reason/Comments: occiptial stroke with field defect. Do you want consulting provider notified?: Yes Consult Physician Urgent Consulting Provider: Prudencio Evans Consult Reason/Comments: Cardioembolic stroke left occipital, needs TAE procedure. Do you want consulting provider notified?: Yes Primary care physician: Cordelia Partida - Discharge Diagnosis(es) (1) Acute ischemic stroke Current Visit: Yes Status: Acute (2) Visual disturbance Current Visit: Yes Status: Acute (3) Hyperlipidemia Current Visit: Yes Status: Acute (4) Hypertension Current Visit: Yes Status: Acute (5) DVT prophylaxis Current Visit: Yes Status: Acute Hospital Course: 61-year-old female with past medical history of hypertension and dyslipidemia. She presented to the hospital due to sudden onset of vision disturbance and dizziness and unsteady gait. She'll reported that she was driving when she experienced symptoms and was progressively getting worse to the point that she had to rod puller and seek help. Upon further evaluation in the ED MRI of the brain was done which has raised suspicion for an ischemic event for which further stroke pathway workup was performed 2-D echo of the heart was unremarkable cardiology evaluated the patient for TAE to rule out any PFO and to evaluate for long-term cardiac monitoring to rule out any subtle arrhythmias. Cardiology evaluated the patient recommended performing TAE next week, and recommended to perform an event monitor to be reviewed as outpatient. Otherwise no cardiac ischemic workup was recommended at this point patient denies any chest pain or any trouble breathing. Neurology evaluated the patient recommended ophthalmology evaluation due to patient complaining of right visual field defect. 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 Patient was seen and examined today, Patient reports complete resolution of all her symptoms today, she is eager to go home, she feels that her vision is back to baseline, and was able to walk around the [place] with no limitations. She understands the recommendations to avoid driving until she gets formal visual field testing ,she will follow up with neurology and cardiology OP. Event monitor was arranged to be delivered to her. she is to come for TAE next week. Constitutional: Not in acute distress, pleasant, conversant, vital signs stable Eyes: Pupils equal round reactive to light Respiratory: Clear to auscultation bilaterally, no wheezes, no crackles, no rhonchi, clear to percussion, normal respiratory effort without use of accessory muscles Cardiovascular: Regular rate and rhythm, no murmurs, no gallops, no rubs, no peripheral edema , no JVD, no carotid bruits, peripheral pulses palpable and equal over bilateral radial arteries and dorsalis pedis arteries Extremities: No digital cyanosis, ischemia or clubbing, no calf muscle tenderness bilaterally Psych: Alert, oriented to place, person and time Neurologic: Cranial nerves II-XII grossly intact, no focal sensory deficits to touch, strength is grossly intact throughout More than 35 minutes were spent discharging this patient, and more than 50% of the time was spent in counseling the patient and family and in coordinating care. Pertinent Studies: MRI of the Brain suggestive possible minimal ischemic changes along the right occipital vertex cortex along with chronic white matter ischemic changes 2-D echo of the heart was unremarkable Patient Condition at Discharge: Stable Plan - Discharge Summary New Discharge Prescriptions: New Atorvastatin [Lipitor] 40 mg PO HS #30 tab Continue NIFEdipine [NIFEdipine ER] 60 mg PO DAILY Multivitamin/Iron/Folic Acid [Centrum Complete Multivit Tab] 1 tab PO DAILY Aspirin [Adult Low Dose Aspirin EC] 81 mg PO DAILY Discontinued Atorvastatin [Lipitor] 20 mg PO HS Discharge Medication List NIFEdipine [NIFEdipine ER] 60 mg PO DAILY 01/17/15 [History] Aspirin [Adult Low Dose Aspirin EC] 81 mg PO DAILY 12/17/16 [History] Multivitamin/Iron/Folic Acid [Centrum Complete Multivit Tab] 1 tab PO DAILY [History] Atorvastatin [Lipitor] 40 mg PO HS #30 tab 12/20/16 [Rx] Follow up Appointment(s)/Referral(s): Sina Rose MD [STAFF PHYSICIAN] - 3 Days (formal visual field exam) Simona Caicedo MD [STAFF PHYSICIAN] - 3 Weeks Cordelia Partida DO [Primary Care Provider] - 1-2 days Manjula Contreras MD [STAFF PHYSICIAN] - 3 Days (For TAE on Thursday12/22/2016) Patient Instructions/Handouts: Ischemic Stroke (GEN) Activity/Diet/Wound Care/Special Instructions: Low Salt Low fat diet avoid driving until you get formal visual field exam by ophthalmology TAE scheduled on December 22 at 11am. Please arrive at 10 am for procedure. Call company number that was given for event monitor for further instruction. Discharge Disposition: HOME SELF-CARE
== END 2016-12-20 10:09 | disposition home or self-care (01) | DRG 66 ==
LOC: EC 12:38 → 3OBS 16:21 → OBSVTOIN 12-18 15:34
PROVIDERS: ADMIT Internal Medicine; ATTEND Internal Medicine
DX: I63.9 Cerebral infarction, unspecified (principal); I10 Essential (primary) hypertension; E78.5 Hyperlipidemia, unspecified; H53.40 Unspecified visual field defects; Z79.82 Long term (current) use of aspirin; Z79.899 Other long term (current) drug therapy; Z80.0 Family history of malignant neoplasm of digestive organs; Z80.7 Family history of other malignant neoplasms of lymphoid, hematopoietic and related tissues; Z82.0 Family history of epilepsy and other diseases of the nervous system; Z82.49 Family history of ischemic heart disease and other diseases of the circulatory system; Z86.011 Personal history of benign neoplasm of the brain
CPT/HCPCS: 36415; 70450; 70551; 71020; 80048; 80053; 80061; 82550; 82553; 82607; 83735; 84443; 84484; 85025; 85652; 86140; 93005; 93270; 93271; 93306; 95816; 96361; 96374; 99285

== ENCOUNTER 2016-12-22 08:48 | Day surgery (SDC) | payer BC ==
[2016-12-22 10:04] VITALS: RESP 16; TEMP 98.1
[2016-12-22] MEDS ORDERED: SODIUM CHLORIDE 0.9% 500 ML IV ONE (10:14)
[2016-12-22] MEDS ORDERED: MIDAZOLAM 2 MG/2 ML VIAL ONE (10:24)
[2016-12-22] MEDS ORDERED: fentaNYL (PF) 50 MCG/ML 2 ML AMP ONE (10:24)
[2016-12-22] MEDS: BENZOCAINE SPRAY 1 SPRAY CAN MUCOUS MEM ONE ×3 (10:33→10:38)
[2016-12-22] MEDS ORDERED: fentaNYL (PF) 50 MCG/ML 2 ML AMP IV ONE (10:40)
[2016-12-22] MEDS ORDERED: MIDAZOLAM 2 MG/2 ML VIAL IVP ONE (10:40)
--- NOTE | 2016-12-22 10:58 | P.PCN ---
Date of Procedure: 12/22/16 Preoperative Diagnosis: Unexplained CVA Postoperative Diagnosis: No evidence of a cardiac source of emboli from the study Procedure(s) Performed: TAE Implants: Indications for Procedure: Operative Findings: Description of Procedure: INDICATION: This 61-year-old female was recently admitted with evidence of visual disturbance and evidence of possible new CVA. A TAE examination is requested to rule out any Cardec source of emboli. CONSENT: Informed consent was obtained from the patient PROCEDURE: . Patient was brought to the lab in a fasting state. She was prepped and draped in the usual fashion. Patient was given IV conscious sedation. A lubricated Omni probe was introduced into the oropharynx and was advanced into the esophagus. Multiple views were obtained. Patient tolerated the procedure well. She was transferred to to extended stay unit for observation. FINDINGS: The aortic valve is tricuspid and function normally. The mitral valve appears to be normal with mild regurgitation. The tricuspid and pulmonic valves appear to be normal. The aortic root diameter is normal. The aorta did not reveal any significant plaque. The interatrial septum appeared to be normal without any spontaneous shunt. Contrast saline bubble injection did not reveal any crossing of the bubbles across the interatrial septum. The left atrial appendage is free of any clot. Left ventricle function appear to be normal IMPRESSION: . No Cardec source of emboli PLAN: . Continue current medical therapy. Further evaluation for any other source of her CVA
[2016-12-22] MEDS ORDERED: SODIUM CHLORIDE 0.9% 1,000 ML IV SCH (11:00)
[2016-12-22 12:06] VITALS: BP 131/70
[2016-12-22 12:07] VITALS: PULSE 60
== END 2016-12-22 12:27 | disposition home or self-care (01) ==
LOC: CATHCVL 08:48
PROVIDERS: ATTEND Internal Medicine Cardiovascular Disease
DX: I63.9 Cerebral infarction, unspecified (principal); G45.9 Transient cerebral ischemic attack, unspecified; I34.0 Nonrheumatic mitral (valve) insufficiency; I10 Essential (primary) hypertension; E78.5 Hyperlipidemia, unspecified; H53.9 Unspecified visual disturbance; Z79.82 Long term (current) use of aspirin; Z79.899 Other long term (current) drug therapy
CPT/HCPCS: 93312; 93320; 93325; J2250; J3010

== ENCOUNTER → 2020-06-14 | Outpatient (CLI) | payer OTHER ==
--- NOTE | 2020-06-14 23:53 | MR ---
EXAMINATION TYPE: MR lumbar spine wo con DATE OF EXAM: 06/14/2020 COMPARISON: NONE HISTORY: Lower back pain into Left Leg. Left leg numbness TECHNIQUE: Multiplanar, multisequence imaging of the lumbar spine is performed without IV contrast. FINDINGS: Sagittal images of the lumbar spine show vertebral body heights to appear satisfactory. Sli ght grade 1 retrolisthesis L3 on L4 and grade 1 anterolisthesis L4 and L5. Multilevel disc desiccatio n. Mild disc space narrowing L3-L4 and L4-L5 levels. [id number] multilevel anterior spurring. The conus medullaris is normal in position and signal ending at T12-L1 disc space level. The bone ma rrow signal intensity is within normal limits. Axial images show T12-L1 and L1-L2 levels to appear within normal limits. Axial images at L2-L3 level show mild broad disc bulge but spinal canal is preserved. Axial images at L3-L4 level show spondylolisthesis with mild/moderate right greater than left uncover tebral facet degenerative changes and ligament flavum hypertrophy effacing the posterior lateral thec al sac. There is mild/moderate broad-based posterior disc protrusion effaces the anterior thecal sac. There is mild bilateral anterior inferior neural foraminal narrowing. Axial images at L4-L5 level show spondylolisthesis with moderate right greater left uncovertebral fac et degenerative changes and ligament flavum hypertrophy. There is a pseudodisc herniation. Spinal can al is preserved. Patent bilateral neural foramina. Axial images at L5-S1 level show [id number] facet degenerative changes bilaterally. There is in creased epidural fat. Patent bilateral neural foramina. Right anterolateral spur disc complex is felt present. Paraspinal muscle bulk is maintained. IMPRESSION: Multilevel spondylolisthesis and degenerative changes in the lumbar spine as detailed abo ve..
== END | disposition home or self-care (01) ==
LOC: RADMRIMAIN 07:41
PROVIDERS: ATTEND Family Medicine
DX: M43.16 Spondylolisthesis, lumbar region (principal); M47.816 Spondylosis without myelopathy or radiculopathy, lumbar region; M47.817 Spondylosis without myelopathy or radiculopathy, lumbosacral region
CPT/HCPCS: 72148

== ENCOUNTER → 2022-08-01 | Outpatient (CLI) | payer MEDICARE ==
--- NOTE | 2022-08-01 10:41 | CA ---
Stress Echo Report Uma Lord Age: 67 Gender: F : 1955 Exam Date: 08/01/2022 09:46 Exam Location: [place] Stress Ht (in): 65 Wt (lb): 165 Ordering Physician: Cordelia Partida DO Referring Physician: Cordelia Partida DO Corporate [employer] Preparer: GUERITA Technologist Procedure CPT: Indication: I10 htn; R94.31 abn ekg ICD-9 Codes: Rhythm: Patient History: Abnormal EKG Cardiac Medications: Medications in past 24 hours: Contrast: Stress Results Protocol: Flaco Total dose(mL): Exercise Duration (min:sec): 8:[address] Depression (mm): Angina Score: Arcos Score: METS: 10.3 Resting HR: 77 Resting BP: 146 / 91 Peak HR: 136 Peak BP: 224 / 106 Max Predicted HR: 154 88 % Max Predicted HR Target HR: 131 Double Product: 32065 Stress Summary: BP Response: Reason for Termination: Reached target heart rate or work-load Cardiac Symptoms: Dyspnea ECG Analysis Resting ECG: Stress ECG: Arrhythmia: Echo Analysis Resting Echo: Peak Echo Analysis: MEASUREMENTS (Male/Female) Normal Values CONCLUSIONS Baseline EKG revealed a normal sinus rhythm with poor R-wave progression. No significant ST segment changes. Patient walked on a standard Flaco protocol for 8 minutes 36 seconds and achieved a maximum heart rate of 136 bpm which is more than 85% of predicted maximal. Patient developed shortness of breath but did not have any chest discomfort. Resting blood pressure was 146/90 peak blood pressure was 224/106 and then came back to baseline. Patient had a hypertensive response to exercise with no symptoms of angina. EKG did not reveal any ST segment changes to indicate ischemia. By EKG criteria this is a negative stress test by EKG criteria with a hypertensive response to exercise. Baseline echo images revealed normal wall motion wall thickening of all segments. At peak exercise there was good augmentation of left ventricular wall motion wall thickening of all segments suggesting that there is no evidence of any stress-induced ischemia on this study. Final impression: #1 normal stress test by EKG criteria without evidence of ischemia. There was a hypertensive response noted. #2 normal stress echocardiogram without evidence of ischemia Dr. Viky Shvaer MD (Electronically Signed) Final Date: 01 August 2022 10:40
== END | disposition home or self-care (01) ==
LOC: RADNMMAIN 09:15
PROVIDERS: ATTEND Family Medicine
DX: I10 Essential (primary) hypertension (principal); R94.31 Abnormal electrocardiogram [ECG] [EKG]
CPT/HCPCS: 93351

== ENCOUNTER 2022-09-03 08:17 | Day surgery (SDC) | payer MEDICARE, OTHER ==
[2022-09-01 15:23] VITALS: BMI 26.9
[~2022-09-03 08:17] MED LIST: LACTATED RINGERS 1,000 ML IV SCH
[2022-09-03 08:37] VITALS: TEMP 98.6
[2022-09-03] MEDS ORDERED: PROPOFOL 10 MG/ML 20 ML VIAL IV ONE (09:09)
--- NOTE | 2022-09-03 09:38 | P.PCN ---
Date of Procedure: 09/03/22 Procedure(s) Performed: BRIEF HISTORY: Patient is a 67-year-old pleasant white female scheduled for an elective colonoscopy as a part of screening for colon cancer and family history of colon cancer. Her sister was diagnosed with colon cancer at age 36. PROCEDURE PERFORMED: Colonoscopy. PREOPERATIVE DIAGNOSIS: Screening for colon cancer and family history of colon cancer IV sedation per Anesthesia. PROCEDURE: After informed consent was obtained, the patient, was brought into the endoscopy unit. IV sedation was administered by Anesthesia under continuous monitoring. Digital rectal examination was normal. Initially the Olympus CF-160 flexible video colonoscope was then inserted in the rectum, gradually advanced into the cecum without any difficulty. Careful examination was performed as the scope was gradually being withdrawn. Ileocecal valve and the appendiceal orifice were visualized and appeared normal. Prep was excellent. Mucosa of the cecum, ascending colon, transverse colon, descending colon, sigmoid colon, and rectum appeared normal. Scattered sigmoid diverticulosis .Retroflexion was performed in the rectum and small internal hemorrhoids were seen. The patient tolerated the procedure well. IMPRESSION: Normal-appearing colon from rectum to cecum with no evidence of colorectal neoplasia Scattered sigmoid diverticulosis Small internal hemorrhoids RECOMMENDATIONS: Findings of this examination were discussed with the patient as well as a family. She was advised to have a repeat screening colonoscopy in 5 years because of the family history of colon cancer.
[2022-09-03 10:00] VITALS: BP 131/76; PULSE 65; RESP 18
== END 2022-09-03 10:37 | disposition home or self-care (01) ==
LOC: ORWHC2ENDO 08:17
PROVIDERS: ATTEND Internal Medicine Gastroenterology
DX: Z12.11 Encounter for screening for malignant neoplasm of colon (principal); K57.30 Diverticulosis of large intestine without perforation or abscess without bleeding; K64.8 Other hemorrhoids; Z80.0 Family history of malignant neoplasm of digestive organs; I10 Essential (primary) hypertension; E78.5 Hyperlipidemia, unspecified; Z79.02 Long term (current) use of antithrombotics/antiplatelets; Z79.899 Other long term (current) drug therapy; Z86.73 Personal history of transient ischemic attack (TIA), and cerebral infarction without residual deficits
CPT/HCPCS: J2704; G0105